=== PATIENT | male | born 1990 ===

== ENCOUNTER 2019-08-04 16:56 | Inpatient (IN) | payer SELFPAY ==
[~2019-08-04] VITALS: Ht 182.9 cm; Wt 77.3 kg
[2019-08-04] MEDS ORDERED: DiphenhydrAMINE HCL 50 MG/ML VIAL IM ONE (17:15)
[2019-08-04] MEDS ORDERED: LORazepam 2 MG/ML VIAL IM ONE (17:15)
[2019-08-04] MEDS ORDERED: HALOPERIDOL LACTATE 5 MG/ML VIAL IM ONE (17:15)
[2019-08-04] MEDS ORDERED: HALOPERIDOL 5 MG TABLET PO PRN (18:00)
[2019-08-04] MEDS ORDERED: ZOLPIDEM TARTRATE 10 MG TABLET PO PRN (18:00)
[2019-08-04 18:31] LABS: BASOPHILS % (AUTO) 0.2 % (0.0-2.0); EOSINOPHILS % (AUTO) 0.6 % (1.0-6.0); HEMATOCRIT 37.3 % (41-53); HEMOGLOBIN 12.5 g/dL (13.5-17.5); LYMPHOCYTES # (AUTO) 0.9 K/uL (1.0-4.8); LYMPHOCYTES % (AUTO) 10.1 % (22.0-44.0); MEAN CORPUSCULAR HEMOGLOBIN 29.5 pg (26.0-34.0); MEAN CORPUSCULAR HGB CONC 33.6 G/dL (31.0-37.0); MEAN CORPUSCULAR VOLUME 88 fL (80-100); MONOCYTES # (AUTO) 0.7 K/uL (0.1-1.0); NEUTROPHILS # (AUTO) 6.8 K/uL (1.8-7.7); NEUTROPHILS % (AUTO) 81.1 % (40.0-70.0); PLATELET COUNT (AUTO) 270 K/uL (150-450); RED BLOOD CELL COUNT(AUTO) 4.25 MIL/uL (4.50-5.90); RED CELL DISTRIBUTION WIDTH 13.7 % (11.5-14.5)
[2019-08-04 18:46] LABS: ANION GAP 10 mmol/L (8-16); CALCIUM, TOTAL 9.1 mg/dL (8.8-10.5); CARBON DIOXIDE 28 mmol/L (22-29); CHLORIDE 105 mmol/L (98-107); CREATININE 0.99 mg/dL (0.60-1.30); GLOMERULAR FILTR. RATE CALC > 60 mL/min (>60); GLUCOSE,RANDOM 90 mg/dL (70-110); POTASSIUM 3.8 mmol/L (3.5-5.1); SODIUM SERUM 143 mmol/L (136-145); UREA NITROGEN, BLOOD 13 mg/dL (7-18)
[2019-08-04 18:52] LABS: ALANINE AMINOTRANSFERASE 36 U/L (12-78); ALBUMIN 3.7 g/dL (3.4-5.0); ALKALINE PHOSPHATASE 61 U/L (46-116); ASPARTATE AMINOTRANSFERASE 37 U/L (15-37); BILIRUBIN,TOTAL 0.4 mg/dL (0.1-1.0); TOTAL PROTEIN, SERUM 6.8 g/dL (6.4-8.2)
[2019-08-05 09:44] VITALS: BP 119/73
[2019-08-05] MEDS ORDERED: INFLUENZA VIRUS VACCINE QVS 2019-20 (3YR+)/PF 60 MCG/0.5 ML SYRINGE IM ONE (14:45)
[2019-08-05] MEDS: LOPERAMIDE HCL 2 MG CAPSULE PO PRN (17:04)
[2019-08-05] MEDS ORDERED: PETROLATUM,WHITE 28 GM JELLY TP PRN (22:30)
[2019-08-05] MEDS ORDERED: IBUPROFEN 600 MG TABLET PO PRN (22:30)
[2019-08-05] MEDS ORDERED: ACETAMINOPHEN 325 MG TABLET PO PRN (22:30)
[2019-08-05] MEDS ORDERED: LOPERAMIDE HCL 2 MG CAPSULE PO PRN (22:30)
[2019-08-05] MEDS ORDERED: MAGNESIUM HYDROXIDE SUSPENSION 30 ML UDCUP PO PRN (22:30)
[2019-08-05] MEDS ORDERED: MAG HYDROX/AL HYDROX/SIMETH ES 30 ML SUSPENSION UDCUP PO PRN (22:30)
[2019-08-05] MEDS ORDERED: CloNIDine HCL 0.1 MG TABLET PO PRN (22:30)
[2019-08-05] MEDS ORDERED: ALBUTEROL SULFATE HFA 90 MCG/PUFF 8 GM INHALER IH PRN (22:30)
[2019-08-05] MEDS ORDERED: BENZOCAINE/MENTHOL LOZENGE MM PRN (22:30)
[2019-08-05] MEDS ORDERED: OMEPRAZOLE 20 MG CAPSULE PO PRN (22:30)
[2019-08-05] MEDS ORDERED: ONDANSETRON HCL 4 MG TABLET PO PRN (22:30)
[2019-08-05] MEDS ORDERED: DOCUSATE SODIUM 100 MG CAPSULE PO PRN (22:30)
[2019-08-05] MEDS ORDERED: BACITRACIN 28.4 GM OINTMENT TP PRN (22:30)
[2019-08-06] MEDS: RisperiDONE 1 MG TABLET PO SCH ×2 (08:24→17:24)
[2019-08-06] MEDS: LOPERAMIDE HCL 2 MG CAPSULE PO PRN (08:24)
[2019-08-06 08:33] VITALS: BP 103/60
[2019-08-06 16:37] VITALS: BP 111/61
[2019-08-06] MEDS: LORazepam 2 MG TABLET PO PRN (18:30)
[2019-08-07 05:36] VITALS: BP 105/54
[2019-08-07] MEDS: MULTIVITAMINS WITH IRON TABLET PO SCH (06:33)
[2019-08-07 08:43] VITALS: BP 105/60
[2019-08-07] MEDS: RisperiDONE 1 MG TABLET PO SCH ×2 (08:59→17:06)
[2019-08-07] MEDS: LORazepam 2 MG TABLET PO PRN ×2 (08:59→17:06)
[2019-08-07 16:13] VITALS: BP 110/67
[2019-08-08] MEDS: MULTIVITAMINS WITH IRON TABLET PO SCH (06:18)
[2019-08-08] MEDS: RisperiDONE 1 MG TABLET PO SCH ×2 (08:56→16:53)
[2019-08-08] MEDS: LORazepam 2 MG TABLET PO PRN (11:10)
[2019-08-08] MEDS ORDERED: ONDANSETRON HCL 4 MG/2 ML VIAL IM ONE (13:00)
[2019-08-08] MEDS ORDERED: RISP1 PO (14:33)
== END 2019-08-08 16:50 | disposition home or self-care (01) | DRG 885 ==
LOC: EMS 17:00 → B3A 08-05 06:00
PROVIDERS: ADMIT Psychiatry & Neurology Psychiatry; ATTEND Psychiatry & Neurology Psychiatry
DX: F25.9 Schizoaffective disorder, unspecified (principal); F17.200 Nicotine dependence, unspecified, uncomplicated; F41.9 Anxiety disorder, unspecified; G47.00 Insomnia, unspecified; K59.00 Constipation, unspecified; Z59.0 Homelessness
CPT/HCPCS: 96372; 99291; G0480; J1200; J1630; J2060; J2405